=== PATIENT | female | born 1975 | race Caucasian/White ===

== ENCOUNTER 2018-12-24 00:41 | Emergency (ER) | payer SELFPAY ==
[~2018-12-24] VITALS: Ht 149.9 cm; Wt 54.4 kg
[~2018-12-24 00:41] MED LIST: ALBIPROI INH; ALBU90OI INH; ALBU90OI61 INH; AMIT25; AMOX500 PO; AZIT250 PO; BUPR150T2 PO; Bactrim Ds Tab1 EACH PO; CITA20 PO; CODACE30 PO; CODGUAEL PO; FAMO20 PO; HYDACE5 PO; HYDACE5325 PO; HYDACE7.5 PO; HYDGUAL120 PO; IBUP800 PO; LORA1 PO; METPRE4DP PO; NAPR500 PO; NAPR550 PO; NICO14TP TOP; Naprosyn500 MG PO; Norco 5-325 Ta1 EACH PO; ONDA4ODT MM; OXYACE5T PO; OXYC1TAB11 PO; PENVK500 PO; PRED10 PO; PRED20 PO; PROC5 PO; PROM25 PO; Percocet 5-3251 EACH PO; Pyridium100 MG PO; RXHYD5325 PO; SULTRIDS PO; TRAM50 PO; TRAZ150T57 PO
== END 2018-12-24 02:40 | disposition home or self-care (01) ==
LOC: ER 00:41
DX: S60.221A Contusion of right hand, initial encounter (principal); W50.0XXA Accidental hit or strike by another person, initial encounter; Z88.5 Allergy status to narcotic agent; F17.210 Nicotine dependence, cigarettes, uncomplicated
CPT/HCPCS: 29125; 73130; 99283-25

== ENCOUNTER 2021-05-21 09:21 | Inpatient (IN) | payer SELFPAY ==
[2021-05-21 10:49] LABS: BASOPHILS ABSOLUTE AUTO 0.08 K/mm3 (0.00-0.23); BASOPHILS PERCENT AUTO 1 % (0-2); EOSINOPHILS ABSOLUTE AUTO 0.24 K/mm3 (0.00-0.68); EOSINOPHILS PERCENT AUTO 3 % (0-6); Hematocrit 46.6 % (33.0-51.0); Hemoglobin 15.5 g/dL (11.5-16.0); IMMATURE GRAN ABSOLUTE AUTO 0.03 K/mm3 (0.00-0.10); IMMATURE GRAN PERCENT AUTO 0 % (0-1); LYMPHOCYTES ABSOLUTE AUTO 3.75 K/mm3 (0.84-5.20); LYMPHOCYTES PERCENT AUTO 41 % (21-46); MONOCYTES ABSOLUTE AUTO 0.57 K/mm3 (0.16-1.47); MONOCYTES PERCENT AUTO 6 % (4-13); Mean Corpuscular HGB 29.2 pg (26.0-34.0); Mean Corpuscular HGB Conc 33.3 g/dL (31.5-36.5); Mean Corpuscular Volume 88 fL (80-100); Mean Platelet Volume 9.7 fL (9.1-12.4); NEUTROPHILS ABSOLUTE AUTO 4.43 K/mm3 (1.96-9.15); NEUTROPHILS PERCENT AUTO 49 % (41-73); Platelet Count 253 K/mm3 (150-400); RDW Coefficient Variation 12.8 % (11.7-14.2); RDW Standard Deviation 41.3 fL (35.1-46.3)
[2021-05-21 11:01] LABS: Influenza A, PCR NEGATIVE (NEGATIVE); Influenza B, PCR NEGATIVE (NEGATIVE); Resp Syncytial Virus, PCR NEGATIVE (NEGATIVE); SARS-Cov-2 (COVID-19) PCR, MMC NEGATIVE (NEGATIVE)
[2021-05-21 11:03] LABS: Alanine Aminotransfer (ALT/SGP 42 U/L (12-78); Albumin, Blood 3.1 g/dL (3.4-5.0); Albumin/Globulin Ratio 0.8 (0.8-1.8); Alk Phos 114 U/L (50-136); Anion Gap 8 mmol/L (6-16); Aspartate Aminotrans (AST/SGOT 40 U/L (12-37); Bilirubin, Total 0.5 mg/dL (0.1-1.0); Blood Urea Nitrogen 24 mg/dL (8-24); Bun/Creatinine Ratio 28.9 (12.0-20.0); CO2, Blood 22 mmol/L (21-32); Calcium, Blood 8.7 mg/dL (8.5-10.1); Chloride, Blood 108 mmol/L (98-108); Creatinine, Blood 0.83 mg/dL (0.40-1.00); Globulin, Blood 3.7 g/dL (2.2-4.0); Glomerular Filtration Rate >60 (60-); Glucose, Blood 116 mg/dL (70-99); Potassium, Blood 3.9 mmol/L (3.5-5.5); Sodium, Blood 138 mmol/L (136-145); Total Protein, Blood 6.8 g/dL (6.4-8.2)
--- NOTE | 2021-05-21 18:15 | NUR ---
NURSING PCU AMA DISCUSSION: Had a 2nd discussion with patient regarding the benefits of staying in the hospital for treatment after the patient expressed several times, the desire to leave ama. Discussed plan of care from all aspects including possible angiogram, necessity of diuretics, and importance of leaving with proper medication prescrption to prevent rehospitalization. Pt stated that she would not be interested in an angiogram or possible stents as she did not think she would not want to stay through the recovery and honestly stated that she would not be compliant with any medications if a stent was needed. Pt said that she had no desire to stop IV drug use, even knowing the risks which were discussed in depth, including . Attempted to get patient to agree with staying over night for medication treatment and so we could plan for a safe discharge tomorrow with rx's. Pt stated that she would take afternoon dose of diuretic but then wanted to leave a.m.a. Form was signed, PMD and cardiology notified. Pt discharged a.m.a. at approx 1830.
--- NOTE | 2021-05-21 18:33 | NUR ---
ARRIVED IN THE UNIT FROM [facility] AT APPROX 1410, PT IS HERE FOR RIGHT SIDED HEART FAILURE. PT IS FULLY ALERT AND ORIENTED X4, PT WAS ANXIOUS UPON ARRIVAL, COULDNT GET COMFORTABLE IN BED. VITALS HRR ST 90-110'S, BP SYSTOLIC ELEVATED AT 180'S, DIASTOLIC AT 100-115'S, SATS ABOVE 95% ON RA, AFEBRILE. PT BP TREND DOWN AFTER METOPROLOL PO WAS GIVEN BP TREND DOWN TO 115-130'S. PT WAS GIVEN A DOSE OF LASIX IN THE ER AND ATARAX, PT GOT MORE ANXIOUS A COUPLE HOURS AFTER HAS BEEN WANTING TO LEAVE AMA, CODE STATUS ALSO VERIFIED PT DOESNT WANT TO GET RESCUCITATED NOR INTUBATED, THIS RN EXPLAINS THE PLAN OF CARE, THE RISKS AND BENEFITS OF REFUSING THE TREATMENT, ALSO HAD DISCUSSIONS WITH THE PROVIDERS AND ADHESIVE SPRAYER, PT DECIDED TO STAY WAS GIVEN TOTAL OF 75MG ATARAX AND 1MG OF ATIVAN TO HELP WITH ANXIETY, PT STATED THE MEDICATION IS NOT HELPING HER AND SHE WOULD BE MORE COMFORTABLE IF SHE GOES HOME, ADHESIVE SPRAYER AGAIN HAD THE DISCUSSION WITH THE PT, PT AGREED TO RECEIVE EXTRA DOSE OF LASIX 20 MG AND THEN SIGN AMA FORM AND LEAVE, WHICH WAS GIVEN PRIOR TO PT'S LEAVING. PT LEFT AT 1830
== END 2021-05-21 14:08 | disposition left against medical advice (07) | DRG 292 ==
LOC: ER 09:21 → PCU 12:23
PROVIDERS: Emergency Medicine; Student in an Organized Health Care Education/Training Program; ADMIT Internal Medicine
DX: I11.0 Hypertensive heart disease with heart failure (principal); I16.1 Hypertensive emergency; Z20.822 Contact with and (suspected) exposure to COVID-19; Z66 Do not resuscitate; Z59.00 Homelessness unspecified; I50.811 Acute right heart failure; I34.0 Nonrheumatic mitral (valve) insufficiency; I27.20 Pulmonary hypertension, unspecified; I07.1 Rheumatic tricuspid insufficiency; F17.210 Nicotine dependence, cigarettes, uncomplicated; F32.A Depression, unspecified; F41.9 Anxiety disorder, unspecified; G43.909 Migraine, unspecified, not intractable, without status migrainosus; F15.90 Other stimulant use, unspecified, uncomplicated; Z53.29 Procedure and treatment not carried out because of patient's decision for other reasons; Z90.49 Acquired absence of other specified parts of digestive tract; Z90.710 Acquired absence of both cervix and uterus; Z98.891 History of uterine scar from previous surgery; Z88.6 Allergy status to analgesic agent; Z79.2 Long term (current) use of antibiotics; Z79.899 Other long term (current) drug therapy
CPT/HCPCS: 0241U; 36415; 71260; 80053; 83605; 83880; 84443; 84484; 85025; 93005; 93010; 93306; 99285-25; A9270; J1940; J3370; J7050; Q9967

== ENCOUNTER 2021-07-03 11:45 | Observation (INO) | payer OTHER ==
[~2021-07-03] VITALS: Ht 149.9 cm; Wt 72.7 kg
[2021-07-03 12:38] LABS: BASOPHILS ABSOLUTE AUTO 0.06 K/mm3 (0.00-0.23); BASOPHILS PERCENT AUTO 1 % (0-2); EOSINOPHILS PERCENT AUTO 2 % (0-6); Hematocrit 49.8 % (33.0-51.0); Hemoglobin 16.5 g/dL (11.5-16.0); IMMATURE GRAN ABSOLUTE AUTO 0.02 K/mm3 (0.00-0.10); IMMATURE GRAN PERCENT AUTO 0 % (0-1); LYMPHOCYTES ABSOLUTE AUTO 3.55 K/mm3 (0.84-5.20); LYMPHOCYTES PERCENT AUTO 39 % (21-46); MONOCYTES ABSOLUTE AUTO 0.56 K/mm3 (0.16-1.47); MONOCYTES PERCENT AUTO 6 % (4-13); Mean Corpuscular HGB 29.4 pg (26.0-34.0); Mean Corpuscular HGB Conc 33.1 g/dL (31.5-36.5); Mean Corpuscular Volume 89 fL (80-100); Mean Platelet Volume 9.9 fL (9.1-12.4); NEUTROPHILS ABSOLUTE AUTO 4.81 K/mm3 (1.96-9.15); NEUTROPHILS PERCENT AUTO 52 % (41-73); Platelet Count 296 K/mm3 (150-400); RDW Coefficient Variation 13.2 % (11.7-14.2); RDW Standard Deviation 43.2 fL (35.1-46.3); Red Blood Cell Count 5.61 M/mm3 (3.80-5.20)
[2021-07-03 13:21] LABS: Alanine Aminotransfer (ALT/SGP 42 U/L (12-78); Albumin, Blood 3.1 g/dL (3.4-5.0); Albumin/Globulin Ratio 0.7 (0.8-1.8); Alk Phos 117 U/L (50-136); Anion Gap 7 mmol/L (6-16); Aspartate Aminotrans (AST/SGOT 76 U/L (12-37); Bilirubin, Total 0.5 mg/dL (0.1-1.0); Blood Urea Nitrogen 21 mg/dL (8-24); Bun/Creatinine Ratio 26.5 (12.0-20.0); CO2, Blood 25 mmol/L (21-32); Calcium, Blood 9.2 mg/dL (8.5-10.1); Chloride, Blood 104 mmol/L (98-108); Creatinine, Blood 0.79 mg/dL (0.40-1.00); Globulin, Blood 4.3 g/dL (2.2-4.0); Glomerular Filtration Rate >60 (60-); Glucose, Blood 82 mg/dL (70-99); Potassium, Blood 5.6 mmol/L (3.5-5.5); Sodium, Blood 136 mmol/L (136-145); Total Protein, Blood 7.4 g/dL (6.4-8.2)
[2021-07-03 19:37] LABS: Anion Gap 5 mmol/L (6-16); Blood Urea Nitrogen 20 mg/dL (8-24); Bun/Creatinine Ratio 22.9 (12.0-20.0); CO2, Blood 27 mmol/L (21-32); Calcium, Blood 9.5 mg/dL (8.5-10.1); Chloride, Blood 106 mmol/L (98-108); Creatinine, Blood 0.87 mg/dL (0.40-1.00); Glomerular Filtration Rate >60 (60-); Glucose, Blood 108 mg/dL (70-99); Sodium, Blood 138 mmol/L (136-145)
[2021-07-03 19:46] LABS: Potassium, Blood 3.2 mmol/L (3.5-5.5)
[2021-07-04 03:55] LABS: BASOPHILS ABSOLUTE AUTO 0.09 K/mm3 (0.00-0.23); BASOPHILS PERCENT AUTO 1 % (0-2); EOSINOPHILS ABSOLUTE AUTO 0.25 K/mm3 (0.00-0.68); EOSINOPHILS PERCENT AUTO 2 % (0-6); Hematocrit 49.2 % (33.0-51.0); Hemoglobin 16.6 g/dL (11.5-16.0); IMMATURE GRAN ABSOLUTE AUTO 0.03 K/mm3 (0.00-0.10); IMMATURE GRAN PERCENT AUTO 0 % (0-1); LYMPHOCYTES ABSOLUTE AUTO 3.81 K/mm3 (0.84-5.20); LYMPHOCYTES PERCENT AUTO 34 % (21-46); MONOCYTES ABSOLUTE AUTO 0.81 K/mm3 (0.16-1.47); MONOCYTES PERCENT AUTO 7 % (4-13); Mean Corpuscular HGB 29.3 pg (26.0-34.0); Mean Corpuscular HGB Conc 33.7 g/dL (31.5-36.5); Mean Corpuscular Volume 87 fL (80-100); Mean Platelet Volume 9.3 fL (9.1-12.4); NEUTROPHILS ABSOLUTE AUTO 6.36 K/mm3 (1.96-9.15); NEUTROPHILS PERCENT AUTO 56 % (41-73); Platelet Count 294 K/mm3 (150-400); RDW Coefficient Variation 13.4 % (11.7-14.2); RDW Standard Deviation 42.6 fL (35.1-46.3); Red Blood Cell Count 5.66 M/mm3 (3.80-5.20); White Blood Cell Count 11.35 K/mm3 (4.00-11.30)
[2021-07-04 04:19] LABS: Alanine Aminotransfer (ALT/SGP 34 U/L (12-78); Albumin, Blood 3.1 g/dL (3.4-5.0); Albumin/Globulin Ratio 0.8 (0.8-1.8); Alk Phos 119 U/L (50-136); Anion Gap 9 mmol/L (6-16); Aspartate Aminotrans (AST/SGOT 27 U/L (12-37); Bilirubin, Total 0.7 mg/dL (0.1-1.0); Blood Urea Nitrogen 20 mg/dL (8-24); Bun/Creatinine Ratio 24.3 (12.0-20.0); CO2, Blood 25 mmol/L (21-32); Calcium, Blood 8.8 mg/dL (8.5-10.1); Chloride, Blood 105 mmol/L (98-108); Creatinine, Blood 0.82 mg/dL (0.40-1.00); Globulin, Blood 3.9 g/dL (2.2-4.0); Glomerular Filtration Rate >60 (60-); Glucose, Blood 122 mg/dL (70-99); Potassium, Blood 2.7 mmol/L (3.5-5.5); Sodium, Blood 139 mmol/L (136-145)
--- NOTE | 2021-07-04 04:53 | NUR ---
PT UPDATE PT WITH LAB OF K+ 2.7 THIS AM. CALL PLACED TO MD JIMENEZ. MD JIMENEZ WITH ORDERS FOR K+IV, SEE EMAR.
[2021-07-04] MEDS ORDERED: AMLO10 PO (12:21)
[2021-07-04] MEDS ORDERED: HYDCHL25 PO (12:22)
[2021-07-04] MEDS ORDERED: FURO20 PO (12:23)
[2021-07-04] MEDS ORDERED: TORSE20 PO (12:25)
--- NOTE | 2021-07-04 14:39 | NUR ---
Brief visit this afternoon. Pt getting ready to D/C home. Pt appears withdrawn and not interested in conversation. Pt denies need to complete POLST at this time. Ended visit. Palliative Care will remain available.
--- NOTE | 2021-07-04 14:58 | NUR ---
DISCHARGE PT A&Ox4, VSS. DISCHARGE INSTRUCTIONS REVIEWED WITH PT. PIV REMOVED. PT TAKEN OUT BY WHEELCHAIR WITH BELONGINGS AT APPROXIMATELY 1500.
--- NOTE | 2021-07-04 15:51 | NUR ---
THIS RN AGREES W/ STUDENT NURSE DOCUMENTATION FOR THIS SHIFT.
== END 2021-07-04 15:03 | disposition home or self-care (01) ==
LOC: ER 11:45 → PCU 11:46
PROVIDERS: Physician Assistant; Student in an Organized Health Care Education/Training Program; ADMIT Hospitalist
DX: I27.21 Secondary pulmonary arterial hypertension (principal); I16.0 Hypertensive urgency; I16.1 Hypertensive emergency; F17.210 Nicotine dependence, cigarettes, uncomplicated; R00.0 Tachycardia, unspecified; F15.10 Other stimulant abuse, uncomplicated; E87.5 Hyperkalemia; I11.0 Hypertensive heart disease with heart failure; I50.810 Right heart failure, unspecified; Z66 Do not resuscitate; Z88.8 Allergy status to other drugs, medicaments and biological substances; Z59.00 Homelessness unspecified
CPT/HCPCS: 36415; 71046; 80048; 80053; 83690; 83880; 84484; 85025; 93005; 93010; 96372; 96374; 96375; 96376; 99285-25; A9270; G0378; J0360; J1650; J1940; J2060; J3480; J7050

== ENCOUNTER 2022-02-14 07:44 | Emergency (ER) | payer OTHER ==
[~2022-02-14] VITALS: Ht 149.9 cm; Wt 63.5 kg
[~2022-02-14 07:44] MED LIST changes: +AMLO10 PO; +FURO20 PO; +HYDCHL25 PO; +TORSE20 PO
[2022-02-14 08:06] LABS: Source, Urine Clean Catch
[2022-02-14 08:28] LABS: Bilirubin, Urine Neg (Neg); Blood, Urine Neg (Neg); Glucose Qualitative, Urine Neg (Neg); Ketones, Urine Neg (Neg); Leukocyte Esterase, Urine Neg (Neg); Nitrite, Urine Neg (Neg); Protein, Urine Neg (Neg); Urobilinogen, Urine NORM (Normal)
[2022-02-14 08:39] LABS: Appearance, Urine Clear (Clear); Color, Urine Pale Yellow (P-Yellow)
[2022-02-14 08:46] LABS: BASOPHILS ABSOLUTE AUTO 0.02 K/mm3 (0.00-0.23); BASOPHILS PERCENT AUTO 0 % (0-2); EOSINOPHILS ABSOLUTE AUTO 0.17 K/mm3 (0.00-0.68); EOSINOPHILS PERCENT AUTO 2 % (0-6); Hematocrit 39.4 % (33.0-51.0); Hemoglobin 14.4 g/dL (11.5-16.0); IMMATURE GRAN ABSOLUTE AUTO 0.04 K/mm3 (0.00-0.10); IMMATURE GRAN PERCENT AUTO 1 % (0-1); LYMPHOCYTES ABSOLUTE AUTO 1.14 K/mm3 (0.84-5.20); LYMPHOCYTES PERCENT AUTO 14 % (21-46); MONOCYTES ABSOLUTE AUTO 0.51 K/mm3 (0.16-1.47); MONOCYTES PERCENT AUTO 6 % (4-13); Mean Corpuscular HGB 31.9 pg (26.0-34.0); Mean Corpuscular HGB Conc 36.5 g/dL (31.5-36.5); Mean Corpuscular Volume 87 fL (80-100); Mean Platelet Volume 9.2 fL (9.1-12.4); NEUTROPHILS ABSOLUTE AUTO 6.56 K/mm3 (1.96-9.15); NEUTROPHILS PERCENT AUTO 78 % (41-73); Platelet Count 312 K/mm3 (150-400); RDW Coefficient Variation 11.9 % (11.7-14.2); RDW Standard Deviation 38.2 fL (35.1-46.3); Red Blood Cell Count 4.51 M/mm3 (3.80-5.20); White Blood Cell Count 8.44 K/mm3 (4.00-11.30)
[2022-02-14 09:06] LABS: Albumin/Globulin Ratio 0.7 (0.8-1.8); Bilirubin, Total 1.7 mg/dL (0.1-1.0); Bun/Creatinine Ratio 25.4 (12.0-20.0); Calcium, Blood 8.4 mg/dL (8.5-10.1); Creatinine, Blood 0.79 mg/dL (0.40-1.00); Globulin, Blood 4.3 g/dL (2.2-4.0); Potassium, Blood 1.8 mmol/L (3.5-5.5); Total Protein, Blood 7.3 g/dL (6.4-8.2)
[2022-02-14 10:10] LABS: Influenza A, PCR NEGATIVE (NEGATIVE); Influenza B, PCR NEGATIVE (NEGATIVE); Resp Syncytial Virus, PCR NEGATIVE (NEGATIVE); SARS-Cov-2 (COVID-19) PCR, MMC NEGATIVE (NEGATIVE)
== END 2022-02-14 14:01 | disposition home or self-care (01) ==
LOC: ER 07:44
PROVIDERS: Emergency Medicine; Physician Assistant
DX: E87.6 Hypokalemia (principal); F17.210 Nicotine dependence, cigarettes, uncomplicated; Z88.5 Allergy status to narcotic agent; Z79.899 Other long term (current) drug therapy; Z20.822 Contact with and (suspected) exposure to COVID-19
CPT/HCPCS: 0241U; 36415; 71045; 80053; 81003; 84484; 85025; 93005; 93010; A9270; J3480; J7030; J7050

== ENCOUNTER 2022-04-03 12:44 | Inpatient (IN) | payer OTHER ==
[~2022-04-03] VITALS: Ht 149.9 cm; Wt 59.9 kg
[2022-04-03 13:40] LABS: BASOPHILS ABSOLUTE AUTO 0.06 K/mm3 (0.00-0.23); BASOPHILS PERCENT AUTO 1 % (0-2); EOSINOPHILS ABSOLUTE AUTO 0.09 K/mm3 (0.00-0.68); EOSINOPHILS PERCENT AUTO 1 % (0-6); Hematocrit 44.3 % (33.0-51.0); Hemoglobin 15.6 g/dL (11.5-16.0); IMMATURE GRAN ABSOLUTE AUTO 0.02 K/mm3 (0.00-0.10); IMMATURE GRAN PERCENT AUTO 0 % (0-1); LYMPHOCYTES ABSOLUTE AUTO 2.91 K/mm3 (0.84-5.20); LYMPHOCYTES PERCENT AUTO 28 % (21-46); MONOCYTES PERCENT AUTO 9 % (4-13); Mean Corpuscular HGB 31.8 pg (26.0-34.0); Mean Corpuscular HGB Conc 35.2 g/dL (31.5-36.5); Mean Corpuscular Volume 90 fL (80-100); Mean Platelet Volume 9.8 fL (9.1-12.4); NEUTROPHILS ABSOLUTE AUTO 6.28 K/mm3 (1.96-9.15); NEUTROPHILS PERCENT AUTO 61 % (41-73); Platelet Count 268 K/mm3 (150-400); RDW Coefficient Variation 12.7 % (11.7-14.2); RDW Standard Deviation 41.7 fL (35.1-46.3); White Blood Cell Count 10.26 K/mm3 (4.00-11.30)
[2022-04-03 14:29] LABS: Source, Urine Clean Catch
[2022-04-03 15:01] LABS: Albumin, Blood 3.7 g/dL (3.4-5.0); Albumin/Globulin Ratio 0.8 (0.8-1.8); Bilirubin, Total 0.9 mg/dL (0.1-1.0); Bun/Creatinine Ratio 22.5 (12.0-20.0); Calcium, Blood 13.3 mg/dL (8.5-10.1); Creatinine, Blood 1.11 mg/dL (0.40-1.00); Globulin, Blood 4.5 g/dL (2.2-4.0); Potassium, Blood 2.2 mmol/L (3.5-5.5); Total Protein, Blood 8.2 g/dL (6.4-8.2)
[2022-04-03 15:54] LABS: Appearance, Urine Clear (Clear); Bilirubin, Urine Neg (Neg); Blood, Urine Neg (Neg); Color, Urine Yellow (P-Yellow); Glucose Qualitative, Urine Neg (Neg); Ketones, Urine Neg (Neg); Leukocyte Esterase, Urine 1+ (Neg); Nitrite, Urine Neg (Neg); Protein, Urine 1+ (Neg); Urobilinogen, Urine NORM (Normal)
[2022-04-03 16:25] LABS: Hyaline Casts 0-2 /lpf (0-2)
[2022-04-03 16:26] LABS: Bacteria Mod /hpf; Red Blood Cells, Urine 0-2 /hpf (0-2); Squamous Epithelial Cells Rare /hpf (Few)
[2022-04-03 17:05] LABS: Influenza A, PCR NEGATIVE (NEGATIVE); Influenza B, PCR NEGATIVE (NEGATIVE); Resp Syncytial Virus, PCR NEGATIVE (NEGATIVE); SARS-Cov-2 (COVID-19) PCR, MMC NEGATIVE (NEGATIVE)
[2022-04-04 05:43] LABS: Albumin, Blood 2.4 g/dL (3.4-5.0); Albumin/Globulin Ratio 0.7 (0.8-1.8); Bilirubin, Total 0.3 mg/dL (0.1-1.0); Bun/Creatinine Ratio 21.7 (12.0-20.0); Creatinine, Blood 1.15 mg/dL (0.40-1.00); Globulin, Blood 3.4 g/dL (2.2-4.0); Potassium, Blood 3.3 mmol/L (3.5-5.5)
[2022-04-04 06:00] LABS: Calcium, Blood 9.4 mg/dL (8.5-10.1); Total Protein, Blood 5.8 g/dL (6.4-8.2)
[2022-04-04 06:11] LABS: Bun/Creatinine Ratio 20.9 (12.0-20.0); Calcium, Blood 9.9 mg/dL (8.5-10.1); Creatinine, Blood 1.15 mg/dL (0.40-1.00); Potassium, Blood 2.8 mmol/L (3.5-5.5)
--- NOTE | 2022-04-04 06:25 | NUR ---
Shift Summary PT admitted from ED with Hypercalemia and Hypokalemia. Rcvd PO potassium and KCL IVF, currently on 2 of 3 1 L bags running at 200 ml/hr. PT C/O anxiety at start of shift, rcvd scheduled Wellbutrin and PRN Hydroxyzine, slept well throughout the night. On Tele running 90's. This AM her potassium labs are greatly improved at 3.3, almost WNL. VSS, no acute events, pleasant and cooperative with care.
[2022-04-04 11:56] LABS: Bun/Creatinine Ratio 22.5 (12.0-20.0); Calcium, Blood 9.6 mg/dL (8.5-10.1); Creatinine, Blood 1.02 mg/dL (0.40-1.00); Potassium, Blood 3.6 mmol/L (3.5-5.5)
[2022-04-04 13:50] LABS: Bun/Creatinine Ratio 24.5 (12.0-20.0); Calcium, Blood 9.7 mg/dL (8.5-10.1); Creatinine, Blood 0.94 mg/dL (0.40-1.00); Potassium, Blood 3.4 mmol/L (3.5-5.5)
[2022-04-04] MEDS ORDERED: BENZ100A PO (14:29)
[2022-04-04] MEDS ORDERED: BUPR75 PO (14:29)
[2022-04-04] MEDS ORDERED: POTA20LUD PO (14:31)
[2022-04-04] MEDS ORDERED: HYDPAM50 PO (14:31)
--- NOTE | 2022-04-04 16:24 | NUR ---
PT SLEEPING, RESTING QUIETLY AT START OF SHIFT. WOKE EASILY FOR CARE. UP TO EOB TO EAT BREAKFAST. PT ADMITTED FOR HYPERCALCEMIA, RECEIVING IVF'S AND IV KCL. DR REDMAN IN TO SEE PT AND DISCUSS PLAN OF CARE. NEW ORDERS PLACED. LABS VENKAT'D. PT TO D/C TO HOME. PT OOB AND INTO SHOWER WITH IV AND TELE MX. PT INSTRUCTED ON IV COVERAGE AND REMOVAL OF TELE. PT THEN INFORMED OF D/C ORDERS. MEDS FAXED TO [facility] PER PT REQUEST. D/C INSTRUCTIONS WERE PRINTED TO REVIEW WITH AND GIVE TO PT, BUT PT LEFT UNIT PRIOR TO RECEIVING. PT INSTRUCTED TO RETURN TO RM TO REVIEW INSTRUCTIONS, BUT DID NOT. SECURITY NOTIFIED, BUT DID NOT SEE WHERE PT WENT. A COUPLE OF SOILED ARTICLES OF CLOTHING LEFT IN RM; PLACED IN BAG WITH PT LABEL AND SENT TO [facility] FOR FUTURE [employer] HELPER.
== END 2022-04-04 15:40 | disposition home or self-care (01) | DRG 641 ==
LOC: ER 12:44 → ERHOLD 18:56 → MEDS 20:06
PROVIDERS: Emergency Medicine; Family Medicine; Student in an Organized Health Care Education/Training Program; ADMIT Internal Medicine
DX: E83.52 Hypercalcemia (principal); E87.1 Hypo-osmolality and hyponatremia; E87.6 Hypokalemia; I27.20 Pulmonary hypertension, unspecified; I07.1 Rheumatic tricuspid insufficiency; F15.10 Other stimulant abuse, uncomplicated; Z66 Do not resuscitate; K75.4 Autoimmune hepatitis; I50.812 Chronic right heart failure; I11.0 Hypertensive heart disease with heart failure; J20.9 Acute bronchitis, unspecified; R94.5 Abnormal results of liver function studies; R82.81 Pyuria; F17.210 Nicotine dependence, cigarettes, uncomplicated; Z20.822 Contact with and (suspected) exposure to COVID-19; Z98.890 Other specified postprocedural states; Z88.5 Allergy status to narcotic agent; Z90.710 Acquired absence of both cervix and uterus; Z90.49 Acquired absence of other specified parts of digestive tract; Z59.00 Homelessness unspecified; Z79.899 Other long term (current) drug therapy
CPT/HCPCS: 0241U; 36415; 71046; 71260; 74160; 80048; 80053; 81001; 82652; 83690; 83970; 84443; 84484; 85025; 87086; 96365-59; 96366; 96375; 99285-25; A9270; J1650; J2405; J3480; J7030; J7050; Q9967

== ENCOUNTER → 2022-11-23 | Outpatient (CLI) | payer OTHER ==
[~2022-11-23] MED LIST changes: +BENZ100A PO; +BUPR75 PO; +HYDPAM50 PO; +POTA20LUD PO; +POTCHL20ER PO
[2022-11-23 14:31] LABS: BASOPHILS ABSOLUTE AUTO 0.08 K/mm3 (0.00-0.23); BASOPHILS PERCENT AUTO 1 % (0-2); EOSINOPHILS ABSOLUTE AUTO 0.23 K/mm3 (0.00-0.68); EOSINOPHILS PERCENT AUTO 2 % (0-6); Hematocrit 43.1 % (33.0-51.0); Hemoglobin 14.7 g/dL (11.5-16.0); IMMATURE GRAN ABSOLUTE AUTO 0.03 K/mm3 (0.00-0.10); IMMATURE GRAN PERCENT AUTO 0 % (0-1); LYMPHOCYTES ABSOLUTE AUTO 3.79 K/mm3 (0.84-5.20); LYMPHOCYTES PERCENT AUTO 38 % (21-46); MONOCYTES ABSOLUTE AUTO 0.46 K/mm3 (0.16-1.47); MONOCYTES PERCENT AUTO 5 % (4-13); Mean Corpuscular HGB 30.8 pg (26.0-34.0); Mean Corpuscular HGB Conc 34.1 g/dL (31.5-36.5); Mean Corpuscular Volume 90 fL (80-100); NEUTROPHILS ABSOLUTE AUTO 5.47 K/mm3 (1.96-9.15); NEUTROPHILS PERCENT AUTO 54 % (41-73); Platelet Count 305 K/mm3 (150-400); RDW Coefficient Variation 12.5 % (11.7-14.2); RDW Standard Deviation 41.1 fL (35.1-46.3); Red Blood Cell Count 4.78 M/mm3 (3.80-5.20); White Blood Cell Count 10.06 K/mm3 (4.00-11.30)
[2022-11-23 15:07] LABS: Albumin, Blood 3.5 g/dL (3.4-5.0); Albumin/Globulin Ratio 0.9 (0.8-1.8); Bilirubin, Total 0.4 mg/dL (0.1-1.0); Bun/Creatinine Ratio 28.5 (12.0-20.0); Calcium, Blood 9.1 mg/dL (8.5-10.1); Creatinine, Blood 0.88 mg/dL (0.40-1.00); Globulin, Blood 4.1 g/dL (2.2-4.0); Potassium, Blood 3.1 mmol/L (3.5-5.5); Total Protein, Blood 7.6 g/dL (6.4-8.2)
[2022-11-24 08:11] LABS: HIV AB/P24 AG SCREEN Non Reactive (Non Reactive)
== END | disposition home or self-care (01) ==
LOC: LAB 12:57 → LAB SHORT 12:57
PROVIDERS: Student in an Organized Health Care Education/Training Program
DX: Z11.4 Encounter for screening for human immunodeficiency virus [HIV] (principal); Z11.59 Encounter for screening for other viral diseases; R10.32 Left lower quadrant pain
CPT/HCPCS: 80053; 85025; 86803; 87389

== ENCOUNTER 2022-12-08 10:16 | Emergency (ER) | payer OTHER ==
[~2022-12-08] VITALS: Ht 149.9 cm; Wt 60.8 kg
[2022-12-08] MEDS ORDERED: BUPR75 (10:51)
[2022-12-08 11:15] LABS: Source, Urine Voided
[2022-12-08 11:20] LABS: Appearance, Urine Clear (Clear); Bilirubin, Urine Neg (Neg); Blood, Urine Neg (Neg); Color, Urine Yellow (P-Yellow); Glucose Qualitative, Urine Neg (Neg); Ketones, Urine Neg (Neg); Leukocyte Esterase, Urine 1+ (Neg); Nitrite, Urine Neg (Neg); Protein, Urine 2+ (Neg); Urobilinogen, Urine NORM (Normal)
[2022-12-08 11:32] LABS: BASOPHILS ABSOLUTE AUTO 0.07 K/mm3 (0.00-0.23); BASOPHILS PERCENT AUTO 0 % (0-2); EOSINOPHILS ABSOLUTE AUTO 0.07 K/mm3 (0.00-0.68); EOSINOPHILS PERCENT AUTO 0 % (0-6); Hematocrit 49.4 % (33.0-51.0); Hemoglobin 17.6 g/dL (11.5-16.0); IMMATURE GRAN ABSOLUTE AUTO 0.13 K/mm3 (0.00-0.10); IMMATURE GRAN PERCENT AUTO 1 % (0-1); LYMPHOCYTES ABSOLUTE AUTO 2.95 K/mm3 (0.84-5.20); LYMPHOCYTES PERCENT AUTO 12 % (21-46); MONOCYTES ABSOLUTE AUTO 1.18 K/mm3 (0.16-1.47); MONOCYTES PERCENT AUTO 5 % (4-13); Mean Corpuscular HGB 31.4 pg (26.0-34.0); Mean Corpuscular HGB Conc 35.6 g/dL (31.5-36.5); Mean Corpuscular Volume 88 fL (80-100); Mean Platelet Volume 10.2 fL (9.1-12.4); NEUTROPHILS ABSOLUTE AUTO 19.55 K/mm3 (1.96-9.15); NEUTROPHILS PERCENT AUTO 82 % (41-73); Platelet Count 308 K/mm3 (150-400); RDW Standard Deviation 39.1 fL (35.1-46.3); White Blood Cell Count 23.95 K/mm3 (4.00-11.30)
[2022-12-08 11:34] LABS: Magnesium, Blood 2.4 mg/dL (1.6-2.4); Phosphorus, Blood 3.6 mg/dL (2.5-4.9); Thyroid Stimulating Hormone 1.62 uIU/mL (0.360-4.800)
[2022-12-08 11:42] LABS: Bacteria Many /hpf; Squamous Epithelial Cells Mod /hpf (Few)
[2022-12-08 11:42] LABS: Albumin, Blood 3.7 g/dL (3.4-5.0); Albumin/Globulin Ratio 0.8 (0.8-1.8); Bilirubin, Total 1.2 mg/dL (0.1-1.0); Bun/Creatinine Ratio 23.1 (12.0-20.0); Calcium, Blood 9.4 mg/dL (8.5-10.1); Creatinine, Blood 1.04 mg/dL (0.40-1.00); Globulin, Blood 4.7 g/dL (2.2-4.0); Potassium, Blood 3.7 mmol/L (3.5-5.5); Total Protein, Blood 8.4 g/dL (6.4-8.2)
[2022-12-08 11:43] LABS: Mucus Light (0-Heavy); Red Blood Cells, Urine 0-2 /hpf (0-2)
[2022-12-08 12:44] LABS: Influenza A, PCR NEGATIVE (NEGATIVE); Influenza B, PCR NEGATIVE (NEGATIVE); Resp Syncytial Virus, PCR NEGATIVE (NEGATIVE); SARS-Cov-2 (COVID-19) PCR, MMC NEGATIVE (NEGATIVE)
[2022-12-08] MEDS ORDERED: ONDA4ODT MM (13:23)
[2022-12-08 13:45] VITALS: BP 136/84
== END 2022-12-08 13:51 | disposition home or self-care (01) ==
LOC: ER 10:16
PROVIDERS: Emergency Medicine
DX: R11.2 Nausea with vomiting, unspecified (principal); R19.7 Diarrhea, unspecified; M25.552 Pain in left hip; R10.84 Generalized abdominal pain; R06.00 Dyspnea, unspecified; I11.0 Hypertensive heart disease with heart failure; I50.9 Heart failure, unspecified; F17.210 Nicotine dependence, cigarettes, uncomplicated; Z20.822 Contact with and (suspected) exposure to COVID-19; Z88.5 Allergy status to narcotic agent; Z79.899 Other long term (current) drug therapy
CPT/HCPCS: 0241U; 74022; 76705; 80053; 81001; 83690; 83735; 84100; 84443; 84702; 85025; 87086; 93005; 93010; 96374; 99284-25; J2405; J7030

== ENCOUNTER → 2022-12-24 | Outpatient (CLI) | payer OTHER ==
[~2022-12-24] MED LIST changes: +BUPR75
[2022-12-24 20:13] LABS: Bun/Creatinine Ratio 17.3 (12.0-20.0); Calcium, Blood 8.4 mg/dL (8.5-10.1); Creatinine, Blood 1.04 mg/dL (0.40-1.00); Potassium, Blood 2.9 mmol/L (3.5-5.5)
== END | disposition home or self-care (01) ==
LOC: LAB 18:19 → LAB SHORT 18:19
PROVIDERS: Student in an Organized Health Care Education/Training Program
DX: E87.6 Hypokalemia (principal)
CPT/HCPCS: 80048

== ENCOUNTER 2023-01-23 21:00 | Emergency (ER) | payer OTHER ==
[~2023-01-23] VITALS: Ht 149.9 cm; Wt 72.1 kg
[~2023-01-23 21:00] MED LIST changes: +TRAZ50 PO
[2023-01-23 21:32] LABS: BASOPHILS ABSOLUTE AUTO 0.08 K/mm3 (0.00-0.23); BASOPHILS PERCENT AUTO 1 % (0-2); EOSINOPHILS ABSOLUTE AUTO 0.24 K/mm3 (0.00-0.68); EOSINOPHILS PERCENT AUTO 2 % (0-6); Hematocrit 40.3 % (33.0-51.0); Hemoglobin 13.3 g/dL (11.5-16.0); IMMATURE GRAN ABSOLUTE AUTO 0.06 K/mm3 (0.00-0.10); IMMATURE GRAN PERCENT AUTO 1 % (0-1); LYMPHOCYTES ABSOLUTE AUTO 3.95 K/mm3 (0.84-5.20); LYMPHOCYTES PERCENT AUTO 37 % (21-46); MONOCYTES ABSOLUTE AUTO 0.66 K/mm3 (0.16-1.47); MONOCYTES PERCENT AUTO 6 % (4-13); Mean Corpuscular HGB 30.7 pg (26.0-34.0); Mean Corpuscular Volume 93 fL (80-100); Mean Platelet Volume 9.9 fL (9.1-12.4); NEUTROPHILS ABSOLUTE AUTO 5.73 K/mm3 (1.96-9.15); NEUTROPHILS PERCENT AUTO 54 % (41-73); Platelet Count 284 K/mm3 (150-400); RDW Coefficient Variation 12.8 % (11.7-14.2); Red Blood Cell Count 4.33 M/mm3 (3.80-5.20); White Blood Cell Count 10.72 K/mm3 (4.00-11.30)
[2023-01-23 21:55] LABS: Albumin, Blood 3.7 g/dL (3.4-5.0); Albumin/Globulin Ratio 0.9 (0.8-1.8); Bilirubin, Total 0.4 mg/dL (0.1-1.0); Bun/Creatinine Ratio 21.4 (12.0-20.0); Calcium, Blood 8.8 mg/dL (8.5-10.1); Creatinine, Blood 1.17 mg/dL (0.40-1.00); Globulin, Blood 4.2 g/dL (2.2-4.0); Potassium, Blood 4.2 mmol/L (3.5-5.5); Total Protein, Blood 7.9 g/dL (6.4-8.2)
[2023-01-23] MEDS ORDERED: ALDACTONE25 MG (22:52)
[2023-01-23 23:11] VITALS: BP 157/100
== END 2023-01-23 23:12 | disposition home or self-care (01) ==
LOC: ER 21:00
PROVIDERS: Physician Assistant
DX: R06.02 Shortness of breath (principal); I11.0 Hypertensive heart disease with heart failure; I50.9 Heart failure, unspecified; Z86.79 Personal history of other diseases of the circulatory system; F17.200 Nicotine dependence, unspecified, uncomplicated
CPT/HCPCS: 71260; 80053; 85025; 85379; 99285-25; Q9967